=== PATIENT | female | born 1970 | race Two or more races ===

== ENCOUNTER 2018-06-10 18:16 | Emergency (ER) | payer BC ==
[2018-06-10] MEDS ORDERED: FAMOTIDINE 20 MG TABLET PO ONE (21:27)
[2018-06-10] MEDS ORDERED: LABETALOL HCL INJ 20 MG/4 ML DISP.SYRIN IV ONE ×3 (21:27→23:00)
[2018-06-10] MEDS ORDERED: MAG HYDROX/AL HYDROX/SIMETH SUSP 30 ML UDCUP PO ONE (21:28)
--- NOTE | 2018-06-10 21:34 | ER Document Report ---
ED Medical Screen (RME) - General Chief Complaint: High Blood Pressure Stated Complaint: BLOOD PRESSURE ISSUES Time Seen by Provider: 06/10/18 21:25 Mode of Arrival: Ambulatory Information source: Patient TRAVEL OUTSIDE OF THE [place] IN LAST 30 DAYS: No - HPI Notes: 06/10/18 21:31 Patient is a 47-year-old female history of hypertensive intracranial bleed 2016 presents to the emergency department with report that she ran out of her blood pressure medications 3 months ago and comes in with a mild headache and feeling generally weak with intermittent midepigastric abdominal discomfort. She denies any chest pain or difficulty breathing or fever or chills or nausea or vomiting or constipation or diarrhea. No dysuria. Not the worst headache of her life. No head injury or neck stiffness. No focal numbness or paresthesia. Exam HEENT atraumatic normocephalic conjunctiva clear nose and oropharynx clear. No sinus discomfort. Neck supple nontender no meningismus. Cardiovascular regular rate and rhythm without appreciable murmur gallop or rub. Lungs clear to auscultation bilaterally. Abdomen thin and soft mild tenderness midepigastric region. Negative Childress's. No pulsatile mass. No obvious hepatosplenomegaly. Extremities no cyanosis clubbing or edema. Neurologic exam normal motor and sensory exam normal gait exam. cranial nerves II through XII intact. No ataxia. Plan hypertension with headache and abdominal pain. Abdominal pain minimally reproducible, and patient has not eaten today. Plan for head CT abdominal x- ray EKG lab work urinalysis. Must rule out intracranial hemorrhage. There is no acute neurologic abnormality. Patient will need IV established and labetalol. She is sending her to try to find empty pill bottles at home to find out what antihypertensive medication she has been on. 06/10/18 21:32 - Related Data Allergies/Adverse Reactions: Beef Containing Products Allergy (Verified 06/10/13 13:31) Past Medical History - Past Medical History Cardiac Medical History: Reports: Hx Hypertension Renal/ Medical History: Reports: Hx Ovarian Cysts Past Surgical History: Reports: Hx Section - Immunizations Hx Diphtheria, Pertussis, Tetanus Vaccination: Yes Physical Exam - Vital signs Vitals: Temp Pulse Resp BP Pulse Ox 98.3 F 80 17 225/113 H 100 06/10/18 18:33 06/10/18 18:33 06/10/18 18:33 06/10/18 18:33 06/10/18 18:33 Course - Vital Signs Vital signs: Temp Pulse Resp BP Pulse Ox 98.3 F 80 17 225/113 H 100 06/10/18 18:33 06/10/18 18:33 06/10/18 18:33 06/10/18 18:33 06/10/18 18:33 Doctor's Discharge - Discharge Referrals: SHEILA RM MD [Primary Care Provider] - Follow up as needed
--- NOTE | 2018-06-10 22:08 | RADIOLOGY REPORT (SQ) ---
PROCEDURE: CT OF THE HEAD WITHOUT INTRAVENOUS CONTRAST HISTORY: Headache, hypertensive, hx ICH Indication: Same as above Comparison: None Technique: The study was done on 06/10/2018 at 9:[address] of the head was done without intravenous contrast was done in the orthogonal planes. This exam was performed according to our departmental dose-optimization program, which includes automated exposure control, adjustment of the mA and/or KV according to the patient's size and/or use of iterative reconstruction technique. FINDINGS: There is no intracranial hemorrhage, midline shift mass effect or acute focal infarct. If clinical concern exists regarding an acute ischemic/vascular pathology being responsible for patient's symptomatology, an MRI of the brain is more sensitive than the current study, in ruling out such a possibility. There is good white/white matter differentiation. The ventricular system is normal. The mastoid air cells are unremarkable . The paranasal sinuses show changes of chronic sinusitis . There is no visualization of acute fractures involving the calvarium or the skull base. IMPRESSION: There is no acute intracranial abnormality.
--- NOTE | 2018-06-10 22:45 | RADIOLOGY REPORT (SQ) ---
XR ABDOMEN SUPINE AND ERECT WITH CHEST (ABD ACUTE SERIES) HISTORY: Mid epigastric pain. COMPARISON: None. FINDINGS/IMPRESSION: Nonobstructive bowel gas pattern with stool and air throughout the colon and rectum. No air-fluid levels or pneumoperitoneum on the upright view. Lungs are clear. Normal cardiothymic contours. No pleural effusions. Osseous structures are intact.
--- NOTE | 2018-06-10 23:02 | ER Document Report ---
ED General - General Chief Complaint: High Blood Pressure Stated Complaint: BLOOD PRESSURE ISSUES Time Seen by Provider: 06/10/18 21:25 Mode of Arrival: Ambulatory Notes: Patient is a 47-year-old female with hypertension that presents to the emergency department for chief complaint of high blood pressure, epigastric abdominal pain and mild headache. Patient states that she had some abdominal pain and mild headache over the last 3 days, and was noticing her blood pressure was higher, so she came to the emergency department. She describes her headache as a mild frontal headache, not the worst headache of her life. She does have a history of intracranial hemorrhage, 2 years ago, she is on 3 different blood pressure medications, but states she ran out of 2 of the medications a few months ago, she states she had new prescriptions called in by her primary care physician, but they have not had them filled. She is on hydrochlorothiazide, metoprolol, and spironolactone Past Medical History: Hypertension, history of intracranial hemorrhage Past Surgical History: Social History: Denies tobacco, alcohol or drug use Family History: Reviewed and noncontributory for presenting illness Allergies: Reviewed, see documented allergy list. REVIEW OF SYSTEMS: Unless otherwise stated in this report the patient's positive and negative responses for review of systems for constitutional, eyes, ENT, cardiovascular, respiratory, gastrointestinal, neurological, genitourinary, musculoskeletal, and integumentary systems and related systems to the presenting problem are either as stated in the HPI or were not pertinent or were negative for the symptoms and/or complaints related to the presenting medical problem. PHYSICAL EXAMINATION: Vital signs reviewed, nursing noted reviewed. GENERAL: Well-appearing, well-nourished and in no acute distress. HEAD: Atraumatic, normocephalic. EYES: Eyes appear normal, extraocular movements intact, sclera anicteric, conjunctiva are normal. ENT: nares patent, oropharynx clear without exudates. Moist mucous membranes. NECK: Normal range of motion, supple without lymphadenopathy LUNGS: Breath sounds clear to auscultation bilaterally and equal. No wheezes rales or rhonchi. HEART: Regular rate and rhythm without murmurs ABDOMEN: Soft, nontender, normoactive bowel sounds. No rebound, guarding, or rigidity. No masses appreciated. EXTREMITIES: Nontender, good range of motion, no pitting or edema. NEUROLOGICAL: No focal neurological deficits. Moves all extremities spontaneously Motor and sensory grossly intact on exam. Cranial nerves as tested intact, no facial droop, no aphasia, reflexes intact in the patellar and Achilles tendon reflexes. PSYCH: Normal mood, normal affect. SKIN: Warm, Dry, normal turgor, no rashes or lesions noted on exposed skin TRAVEL OUTSIDE OF THE [place] IN LAST 30 DAYS: No - Related Data Allergies/Adverse Reactions: Beef Containing Products Allergy (Verified 06/10/13 13:31) Past Medical History - General Information source: Patient - Social History Smoking Status: Never Smoker Family History: Hypertension - Mother - Past Medical History Cardiac Medical History: Reports: Hx Hypertension Renal/ Medical History: Reports: Hx Ovarian Cysts Past Surgical History: Reports: Hx Section - Immunizations Hx Diphtheria, Pertussis, Tetanus Vaccination: Yes Physical Exam - Vital signs Vitals: Temp Pulse Resp BP Pulse Ox 98.3 F 80 17 225/113 H 100 06/10/18 18:33 06/10/18 18:33 06/10/18 18:33 06/10/18 18:33 06/10/18 18:33 Course - Re-evaluation Re-evalutation: Patient seen and examined vital signs reviewed. Laboratory data and imaging were ordered as appropriate for the patient's presenting symptoms and complaint, with consideration of any critical or life threatening conditions that may be associated with their obtained history and exam as noted above. Patient was treated with IV labetalol 10 mg, her blood pressure did improve, and then did come back up, however the patient was asymptomatic, after receiving Pepcid, and a cocktail I did does the patient with her oral medication of metoprolol 50 mg, and Spironolactone 25 mg. Results were reviewed when available and demonstrated, negative CT imaging of the head, mild hypokalemia, which will not treat at this time given that the patient is on spironolactone, for risk of inducing hyperkalemia I have low suspicion for intracranial hemorrhage in this patient, given that her headache started 3 days ago, negative CT imaging, and no focal neurological deficits. The patient was re-evaluated and was improved, asymptomatic, she was advised to refill her medications that were sent to the pharmacy, to take them as directed , if she develops any worsening or return if her symptoms to immediately return to the emergency department, which she agreed with Evaluation was most consistent with hypertensive urgency, epigastric abdominal pain Results were discussed with the patient at this point, after careful consideration I feel that that patient can be discharged from the emergency department, the patient was educated treatments and reasons to return to the emergency department based on their presumed diagnosis as noted above, they were advised to followup with a primary care physician in 2-3 days. Patient was agreeable to plan of care. *Note is created using voice recognition software and may contain spelling, syntax or grammatical errors. Laboratory 06/10/18 06/10/18 06/10/18 23:20 23:20 23:20 WBC 7.6 RBC 4.70 Hgb 13.9 Hct 41.3 MCV 88 MCH 29.5 MCHC 33.6 RDW 13.5 Plt Count 302 Seg Neutrophils % 61.3 Lymphocytes % 29.0 Monocytes % 5.6 Eosinophils % 2.8 Basophils % 1.3 Absolute Neutrophils 4.7 Absolute Lymphocytes 2.2 Absolute Monocytes 0.4 Absolute Eosinophils 0.2 Absolute Basophils 0.1 Sodium 138.7 Potassium 3.3 L Chloride 102 Carbon Dioxide 28 Anion Gap 9 BUN 14 Creatinine 0.68 Est GFR ( Amer) > 60 Est GFR (Non-Af Amer) > 60 Glucose 96 Calcium 9.3 Total Bilirubin 1.3 Direct Bilirubin 0.2 Neonat Total Bilirubin Not Reportable Neonat Direct Bilirubin Not Reportable Neonat Indirect Bili Not Reportable AST 26 ALT 27 Alkaline Phosphatase 72 Total Protein 7.7 Albumin 4.6 Lipase 131.9 Serum HCG, Qual NEGATIVE Urine Color Urine Appearance Urine pH Ur Specific [place] Urine Protein Urine Glucose (UA) Urine Ketones Urine Blood Urine Nitrite Urine Bilirubin Urine Urobilinogen Ur Leukocyte Esterase Urine WBC (Auto) Squamous Epi Cells Auto Amorphous Sediment Auto Urine Mucus (Auto) Urine Ascorbic Acid 06/11/18 00:01 WBC RBC Hgb Hct MCV MCH MCHC RDW Plt Count Seg Neutrophils % Lymphocytes % Monocytes % Eosinophils % Basophils % Absolute Neutrophils Absolute Lymphocytes Absolute Monocytes Absolute Eosinophils Absolute Basophils Sodium Potassium Chloride Carbon Dioxide Anion Gap BUN Creatinine Est GFR ( Amer) Est GFR (Non-Af Amer) Glucose Calcium Total Bilirubin Direct Bilirubin Neonat Total Bilirubin Neonat Direct Bilirubin Neonat Indirect Bili AST ALT Alkaline Phosphatase Total Protein Albumin Lipase Serum HCG, Qual Urine Color YELLOW Urine Appearance CLOUDY Urine pH 8.0 Ur Specific [place] 1.012 Urine Protein 30 H Urine Glucose (UA) NEGATIVE Urine Ketones TRACE H Urine Blood NEGATIVE Urine Nitrite NEGATIVE Urine Bilirubin NEGATIVE Urine Urobilinogen NEGATIVE Ur Leukocyte Esterase NEGATIVE Urine WBC (Auto) 0 Squamous Epi Cells Auto 1 Amorphous Sediment Auto TRACE Urine Mucus (Auto) OCC Urine Ascorbic Acid NEGATIVE Acute Abdomen Series 06/10/18 21:28 FINDINGS/IMPRESSION: Nonobstructive bowel gas pattern with stool and air throughout the colon and rectum. No air-fluid levels or pneumoperitoneum on the upright view. Lungs are clear. Normal cardiothymic contours. No pleural effusions. Osseous structures are intact. Head CT 06/10/18 21:36 IMPRESSION: There is no acute intracranial abnormality. - Vital Signs Vital signs: Temp Pulse Resp BP Pulse Ox 98.6 F 88 11 L 189/105 H 100 06/11/18 01:15 06/10/18 22:12 06/11/18 01:15 06/11/18 01:15 06/11/18 01:15 - Laboratory Result Diagrams: 06/10/18 23:20 06/10/18 23:20 Laboratory results interpreted by me: 06/10/18 06/11/18 23:20 00:01 Potassium 3.3 L Urine Protein 30 H Urine Ketones TRACE H - EKG Interpretation by Me Additional EKG results interpreted by me: 06/10/18 23:01 EKG demonstrates normal sinus rhythm with a ventricular rate of 76 bpm, normal axis, QTC 486 ms, no evidence of acute ischemia on this EKG. This is compared with prior EKG from 02/09/2016, at that time patient had sinus tachycardia with a rate of 111, no acute ST or T-wave changes from that EKG. Discharge - Discharge Clinical Impression: Hypertensive urgency Condition: Stable Disposition: HOME, SELF-CARE Instructions: High Blood Pressure, Requiring Treatment ([facility], [facility]) Forms: Elevated Blood Pressure Referrals: SHEILA RM MD [NO LOCAL MD] - Follow up tomorrow
--- NOTE | 2018-06-10 23:03 | EKG REPORT ---
SEVERITY:- ABNORMAL ECG - SINUS RHYTHM LEFT VENTRICULAR HYPERTROPHY BORDERLINE PROLONGED QT INTERVAL : Confirmed by: Nicole Kyle 10-Jun-2018 23:03:20
[2018-06-10 23:43] LABS: ABSOLUTE BASOPHILS # (AUTO) 0.1 10^3/uL (0.0-0.2); ABSOLUTE EOSINOPHILS # (AUTO) 0.2 10^3/uL (0.0-0.6); ABSOLUTE LYMPHOCYTES (AUTO) 2.2 10^3/uL (0.5-4.7); ABSOLUTE MONOCYTES (AUTO) 0.4 10^3/uL (0.1-1.4); ABSOLUTE NEUT (AUTO) 4.7 10^3/uL (1.7-8.2); BASOPHILS % (AUTO) 1.3 % (0-2); EOSINOPHILS % (AUTO) 2.8 % (0-6); HEMATOCRIT 41.3 % (36.0-47.0); HEMOGLOBIN 13.9 g/dL (12.0-15.5); MEAN CORPUSCULAR HEMOGLOBIN 29.5 pg (27.0-33.4); MEAN CORPUSCULAR HGB CONC 33.6 g/dL (32.0-36.0); MEAN CORPUSCULAR VOLUME 88 fl (80-97); MONOCYTES % (AUTO) 5.6 % (3-13); PLATELET COUNT 302 10^3/uL (150-450); RED CELL DISTRIBUTION WIDTH 13.5 % (11.5-14.0); SEGMENTED NEUTROPHILS % (AUTO) 61.3 % (42-78); TOTAL CELLS COUNTED % (AUTO) 100 %; WHITE BLOOD COUNT 7.6 10^3/uL (4.0-10.5)
[2018-06-10 23:55] LABS: ALANINE AMINOTRANSFERASE 27 U/L (9-52); ALBUMIN 4.6 g/dL (3.5-5.0); ALKALINE PHOSPHATASE 72 U/L (38-126); ANION GAP 9 (5-19); ASPARTATE AMINO TRANSFERASE 26 U/L (14-36); BILIRUBIN,DIRECT 0.2 mg/dL (0.0-0.4); BILIRUBIN,TOTAL 1.3 mg/dL (0.2-1.3); BLOOD UREA NITROGEN 14 mg/dL (7-20); CALCIUM 9.3 mg/dL (8.4-10.2); CARBON DIOXIDE 28 mmol/L (22-30); CHLORIDE 102 mmol/L (98-107); GLUCOSE 96 mg/dL (75-110); LIPASE 131.9 U/L (23-300); POTASSIUM 3.3 mmol/L (3.6-5.0); SODIUM 138.7 mmol/L (137-145); TOTAL PROTEIN 7.7 g/dL (6.3-8.2)
[2018-06-11 00:35] LABS: AMORPHOUS SEDIMENT,URINE TRACE /HPF; APPEARANCE,URINE CLOUDY; BILIRUBIN,URINE NEGATIVE (NEGATIVE); COLOR,URINE YELLOW; GLUCOSE, URINE NEGATIVE (NEGATIVE); KETONES,URINE TRACE mg/dL (NEGATIVE); LEUKOCYTE ESTERASE,URINE NEGATIVE (NEGATIVE); NITRITE,URINE NEGATIVE (NEGATIVE); PROTEIN,URINE 30 mg/dL (NEGATIVE); URINE SPECIFIC GRAVITY 1.012; UROBILINOGEN,URINE NEGATIVE mg/dL (<2.0)
[2018-06-11] MEDS ORDERED: SPIRONOLACTONE 25 MG TABLET PO ONE (01:08)
[2018-06-11] MEDS ORDERED: METOPROLOL TARTRATE 50 MG TABLET PO ONE (01:09)
[2018-06-11 01:53] VITALS: BP 189/105
== END 2018-06-11 01:53 | disposition home or self-care (01) ==
LOC: ER 18:16
DX: I16.0 Hypertensive urgency (principal); I10 Essential (primary) hypertension; R10.13 Epigastric pain; R51 Headache; R10.9 Unspecified abdominal pain; Z79.899 Other long term (current) drug therapy
CPT/HCPCS: 93005; 99284; 96374; 36415; 83690; 84703; 85025; 80053; 81001; 74022; 70450; 93010; J3490